=== PATIENT | female | born 2000 | race Caucasian/White ===

== ENCOUNTER 2024-03-10 18:28 | Emergency (ER) | payer OTHER, SELFPAY ==
[2024-03-10 18:46] VITALS: BP 124/89; PULSE 121; RESP 18; TEMP 36.8; O2SAT 100
--- NOTE | 2024-03-10 19:17 | ED.URI ---
HPI - URI/Sore Throat General Chief Complaint: Upper Respiratory Infection Stated Complaint: headache and phlegm Time Seen by Provider: 03/10/24 19:17 Source: patient Mode of arrival: ambulatory Limitations: no limitations History of Present Illness HPI Narrative: 23-year-old female presents with complaint congestion, fatigue, body aches, cough for 4 days. Taking [id number] medications to treat symptoms. no chest pain or shortness of breath. Denies nausea vomiting diarrhea. All systems reviewed and negative except as noted above. Related Data Home Medications ?Medication ?Instructions ?Recorded ?Confirmed ?Last Taken ?Type norgestimate 0.25 mg-ethinyl tablet 03/10/24 Unknown History estradiol 35 mcg tablet (Mihaela) Allergies Allergy/AdvReac Type Severity Reaction Status Date / Time No Known Allergies Allergy Verified 03/10/24 18:33 Review of Systems Review of Systems: CONSTITUTIONAL: Denies fever, chills, or sweats. reports fatigue. EYES: Denies visual changes, redness, or discharge. ENT: reports rhinorrhea, congestion, sore throat. Denies otalgia. CARDIOVASCULAR: Denies chest pain, palpitations, or edema. RESPIRATORY: Reports cough. Denies dyspnea. GASTROINTESTINAL: Denies abdominal pain, nausea, vomiting, or diarrhea. GENITOURINARY: Denies dysuria or hematuria. SKIN: Denies rash or itching. MUSCULOSKELETAL: Denies back pain, joint pain . Reports myalgia. NEUROLOGIC: Denies headache, numbness, or weakness. PSYCHIATRIC: Denies anxiety or depression. All other systems reviewed are negative, except as documented in HPI. PMFSH Comments At time of signature, agree with nursing past medical, surgical, social and family history. There is no relevant family history pertinent to the presenting complaint. Exam Narrative: GENERAL: This is a well-nourished, well-developed patient, ill-appearing but no acute distress HEAD: normocephalic, atraumatic. EYES: PERRL. Sclera clear/white. Vision is grossly intact. EARS: External ears normal, auditory canals clear and without drainage, TMs normal without perforation. Hearing grossly intact. NOSE: External nose normal with mild congestion, clear nasal drainage THROAT: Mucous membranes moist, posterior pharynx clear. NECK: Neck supple, non-tender without lymphadenopathy, masses or thyromegaly. CARDIOVASCULAR: Regular rate and rhythm without murmurs, gallops, or rubs. RESPIRATORY: Clear to auscultation. Breath sounds equal bilaterally. No wheezes, rales, or rhonchi. SKIN: warm, Dry, intact with no suspicious lesions or rash, good texture and turgor. NEURO: awake, alert, and oriented to person, place and time. There were no obvious focal neurologic abnormalities. EXTREMITIES: No joint tenderness, effusion, or edema noted. Course Course Level of Care: Express Care Visit Vital Signs Vital signs: Vital Signs Temperature 36.8 C 03/10/24 18:46 Pulse Rate 121 H 03/10/24 18:46 Respiratory Rate 18 03/10/24 18:46 Blood Pressure 124/89 03/10/24 18:46 Pulse Oximetry 100 03/10/24 18:46 Oxygen Delivery Room Air 03/10/24 18:46 Temperature 36.8 C 03/10/24 18:46 Pulse Rate 121 H 03/10/24 18:46 Respiratory Rate 18 03/10/24 18:46 Blood Pressure 124/89 03/10/24 18:46 Pulse Oximetry 100 03/10/24 18:46 Oxygen Delivery Room Air 03/10/24 18:46 reviewed MDM - URI/Sore Throat MDM Narrative Medical decision making narrative: positive for influenza A. Patient alert, nontoxic. Lungs clear to auscultation. Recommend continuing [id number] medications to treat symptoms. Patient is aware of diagnosis, understands and agrees to treatment plan. Anticipatory guidance given. Patient agrees to follow-up as directed and is aware of reasons to seek care at the emergency department. Portions of this record may have been created with voice recognition software Differential Diagnosis Differential diagnosis: Likely upper respiratory infection, sinusitis, viral infection, influenza and pharyngitis Lab Data Labs: Lab Results 03/10/24 Range/Units 19:31 POC Influenza A Ag Positive (Negative) POC Influenza B Ag Negative (Negative) Discharge Plan Discharge Clinical Impression: Influenza A Patient Disposition: Home, Self-Care Condition: Stable Instructions: Influenza (ED) Additional Instructions: you were positive for influenza today. Influenza is a virus and symptoms may last 10-14 days. Taking [id number] medication to treat her symptoms such as DayQuil NyQuil cold and flu. Take ibuprofen every 6-8 hours as needed for pain and fever. Drink at least 64 oz of water a day. Place cool mist humidifier in bedroom where you sleep. Follow-up with your primary care physician if symptoms are not improving. Patient Language: Italian Prescriptions: No Action norgestimate-ethinyl estradiol [Mihaela] 0.25-35 mg-mcg tablet Follow-up/Referrals: PHYSICIAN,MANA[facility] [Primary Care Provider] - Stand Alone Forms: Work/School Release IP Time of Disposition: 19:29
[2024-03-10 19:33] LABS: EDINFLUASCREEN Positive (Negative); EDINFLUBSCREEN Negative (Negative)
[2024-03-10 19:42] LABS: EDCOVIDSCREEN Negative (Negative)
== END 2024-03-10 19:40 | disposition home or self-care (01) ==
PROVIDERS: Emergency Provider Nurse Practitioner Family; Referring Provider Emergency Medicine
DX: J10.1 Influenza due to other identified influenza virus with other respiratory manifestations (principal); Z20.822 Contact with and (suspected) exposure to COVID-19; Z86.16 Personal history of COVID-19
CPT/HCPCS: 87426; 87804; 99212; G0463